=== PATIENT | male | born 1990 | race Caucasian/White ===

== ENCOUNTER 2018-11-04 18:52 | Emergency (ER) | payer OTHER ==
--- NOTE | 2018-11-04 19:00 | ED ---
General Adult HPI - General Stated complaint: Overdose Time Seen by Provider: 11/04/18 18:55 Source: patient, police, EMS, RN notes reviewed, old records reviewed - History of Present Illness Initial comments: 28-year-old male brought in by EMS with opiate overdose. Patient admits to snorting heroin. Was found by police in the bathroom all the local pharmacy. Patient was given 1 mg Narcan by EMS. He was never hypoxic rapidly, he was somewhat obtunded, he was tachycardic according to EMS. Patient states this was recreational use of snorting heroin. He denies suicidal attempt. He is alert and oriented time of evaluation with no complaints. - Related Data Previous Rx's Medication Instructions Recorded Naloxone HCl [Narcan] 4 mg NASAL ONCE PRN #1 unit 11/04/18 Allergies Allergy/AdvReac Type Severity Reaction Status Date / Time No Known Allergies Allergy Verified 11/04/18 19:46 Review of Systems ROS Statement: Those systems with pertinent positive or pertinent negative responses have been documented in the HPI. ROS Other: All systems not noted in ROS Statement are negative. General Exam Limitations: no limitations General appearance: alert, in no apparent distress Head exam: Present: atraumatic, normocephalic Eye exam: Present: normal appearance, PERRL, EOMI ENT exam: Present: normal exam Neck exam: Present: normal inspection. Absent: tenderness, meningismus Respiratory exam: Present: normal lung sounds bilaterally. Absent: respiratory distress, wheezes Cardiovascular Exam: Present: normal rhythm, tachycardia GI/Abdominal exam: Present: soft. Absent: distended, tenderness, guarding Extremities exam: Present: normal inspection, normal capillary refill. Absent: pedal edema Back exam: Present: normal inspection Neurological exam: Present: alert, oriented X3, CN II-XII intact. Absent: motor sensory deficit Psychiatric exam: Absent: suicidal ideation Skin exam: Present: warm, dry, intact. Absent: cyanosis, diaphoretic Course Vital Signs 11/04/18 11/04/18 19:00 20:10 Pulse Rate 133 H 111 H Respiratory 18 16 Rate Blood Pressure 145/93 135/83 O2 Sat by Pulse 95 97 Oximetry Medical Decision Making - Medical Decision Making 28-year-old male with heroin overdose. Given Narcan by EMS. No need for re- dosing while the emergency department. Patient is alert and oriented, normal respirations, normal oxygenation, no complaints. He is accompanied by his brother. Denies any suicidal ideation or attempt. Patient states this was recreational he uses heroin approximately once a week. He states he does feel he needs to abstain. He will be prescribed intranasal Narcan. Disposition Clinical Impression: Poisoning by opiate or related narcotic Disposition: HOME SELF-CARE Condition: Fair Instructions (If sedation given, give patient instructions): Adult Overdose (ED ), Narcotic Use Disorder (ED) Prescriptions: Naloxone HCl [Narcan] 4 mg NASAL ONCE PRN #1 unit PRN Reason: Opioid Reversal Is patient prescribed a controlled substance at d/c from ED?: No Referrals: None,Stated [REFERRING] - 1-2 days Cinthia Pemberton MD [REFERRING] - 1-2 days Time of Disposition: 20:22
[2018-11-04 21:03] VITALS: BP 108/71; PULSE 107; RESP 18; TEMP 98.2
== END 2018-11-04 21:03 | disposition home or self-care (01) ==
LOC: EC 18:52
DX: T40.601A Poisoning by unspecified narcotics, accidental (unintentional), initial encounter (principal); R00.0 Tachycardia, unspecified
CPT/HCPCS: 99284